=== PATIENT | female | born 1935 | race African-American/Black ===

== ENCOUNTER 2020-05-15 23:02 | Inpatient (IN) | payer OTHER ==
[~2020-05-15] VITALS: Ht 157.5 cm; Wt 40.8 kg
[2020-05-15 23:14] VITALS: BP 153/84
[2020-05-16 00:07] LABS: ABSOLUTE NEUTROPHILS 4.8 thou/uL (1.4-8.2); BASOPHILS 0.6 % (0.0-2.0); HEMATOCRIT 43.2 % (37.0-47.0); HEMOGLOBIN 14.2 gm/dL (12.0-15.0); LYMPHOCYTES 10.4 % (24.0-44.0); MCHC 32.7 g/dL (28.0-37.0); MCV 82.6 fL (80.0-100.0); MONOCYTES 4.1 % (1.0-8.0); PLATELET COUNT 143 thou/uL (150-400); POLYS 84.9 % (36.0-66.0); RBC 5.23 mil/uL (4.20-5.00); RDW 15.4 % (10.5-14.5); WBC 5.6 thou/uL (4.0-11.0)
[2020-05-16 00:21] LABS: ALBUMIN 3.8 g/dL (3.4-5.0); CALCIUM 9.7 mg/dL (8.5-10.1); CREATININE 1.4 mg/dL (0.6-1.0); TOTAL BILIRUBIN 0.6 mg/dL (0.2-1.0); TOTAL PROTEIN 7.5 g/dL (6.4-8.2); TROPONIN-I 0.07 ng/mL (<0.06)
[2020-05-16 00:23] LABS: POTASSIUM 2.9 mmol/L (3.5-5.1)
[2020-05-16 03:11] VITALS: BP 159/92
[2020-05-16 03:37] VITALS: BP 128/86
--- NOTE | 2020-05-16 04:25 | NUR ---
PATIENT IS A NEW ADMISSION TO THE UNIT THIS SHIFT. SHE ARRIVED VIA CART FROM THE ER AND WAS TRANSFERRED TO THE BED BY STAFF WITHOUT INCIDENT. PATIENT IS ALERT, ORIENTED TO SELF AND PLEASANTLY CONFUSED. SHE WILL BE UNABLE TO PROVIDE USEFUL INFORMATION. ATTEMPTS TO CONTACT FAMILY HAVE BEEN UNSUCCESSFUL. BREATHING STABLE ON ROOM AIR EVIDENCED BY ASSESSMENT AND SPOT OXYGENATION CHECK. NURSE TO COMPLETE ADMISSION AND INITIATE PLAN OF CARE.
[2020-05-16 04:42] LABS: CALCIUM 9.5 mg/dL (8.5-10.1); CREATININE 1.2 mg/dL (0.6-1.0); TROPONIN-I 0.09 ng/mL (<0.06)
[2020-05-16 05:09] LABS: POTASSIUM 2.9 mmol/L (3.5-5.1)
[2020-05-16 07:15] VITALS: BP 162/72
--- NOTE | 2020-05-16 10:01 | NUR ---
WOUND/RISK ASSESSMENT; NO WOUND IDENTIFIED TODAY. THE PATIENT IS ALERT X1. THE ALBUMIN IS 3.8. THE NATANAEL SCORE IS 12 TODAY. NO SKIN ISSUES IDENTIFED. RECOMMENDATIONS; 1-LOW AIRLOSS BED PUMP. 2-Q2H TURNS MINIMUM. 3-USE BARRIENR CREAM TO ALL RADHA PROMINENCES; SCAPULA,SACRUM, COCCYX, BUTTOCKS, AND HEELS, 4-OFFLOAD WITH PRAFO BOOTS. RN PRESENT
--- NOTE | 2020-05-16 11:21 | NUR ---
ASSESSMENT: CM REVIEWED CHART AND SPOKE WITH PATIENTS DAUGHTER ANTONIO THAT SHE LIVES WITH WELL HER SON/DPOA JODY THAT LIVES IN [place]. JODY CAN BE REACHED AT HOME PHONE:[phone] OR CELL: [phone]. CM PROVIDED THIS CONTACT INFORMATION TO ATTENDING PER HIS REQUEST. PATIENT LIVES AT HOME IN A TOWNHOUSE WITH DAUGHTER ANTONIO AND HAS BEEN THERE TWO YEARS IN DECEMBER. PRIOR TO THAT PATIENT WAS LIVING IN [place] IN A [facility]. DAUGHTER ANTONIO STATES PATIENT WAS PRIVATELY PAYING AT THE FACILITY AND FUNDS WERE LOW SO SHE THEN DECIDED TO MOVE PATIENT BACK HERE WITH HER IN HER HOME. SHE STATES THAT PATIENT HAS A WALKER FOR AMBULATION BUT DOES NOT ROUTINELY USE IT ALTHOUGH SHE NEEDS IT. PT HAS ABOUT 3 STEPS TO ENTER THE [facility] AND ABOUT 5 STEPS WITH [facility]ANDRAILS TO THE MAIN LIVING AREA. DAUGHTER REPORTS THAT PATIENTS SPEECH IS OFTEN UNINTELLIGIBILE. SHE STATES THAT PATIENT IS CONFUSED AT BASELINE AND NOT THE SAME PERSON SHE USED TO BE. PT HAS A SHOWER CHAIR AND DAUGHTER HAS TO ASSIST WITH ADLS. CM SPOKE WITH SON TO UPDATE HIM ON CARE. PT/OT IS PENDING AND PATIENT WILL LIKELY NEED POST ACUTE CARE. CM DISCUSSED WITH SON AND DAUGHTER AND THEY ARE AGREEABLE. CM EMAILED A LIST TO PATIENTS SON PER HIS REQUEST TO [email or web address] AND HE WILL REVIEW AND DISCUSS WITH SISTER. PT/OT IS PENDING AT THIS TIME. ATTENDING SPOKE WITH DPOA AND PLANS FOR SNF WITH POSSIBLE TRANSITION TO LTC. CM WILL HAVE MED ASSIST SCREEN PATIENT FOR MEDICAID. CM WILL CONTINUE TO FOLLOW TO ASSIST NEEDED.
--- NOTE | 2020-05-16 12:07 | EKG ---
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 : 1935 Requested By: Devon Silverio Order Number: [id number] MD: Brandon Little Measurements Intervals Etters Rate: 66 P: 101 IL: 132 QRS: 19 QRSD: 81 T: -56 QT: 439 QTc: 460 Interpretive Statements Sinus rhythm Probable left atrial enlargement Left ventricular hypertrophy Nonspecific T abnormalities, inferior leads No previous ECG available for comparison Electronically Signed On 05-16-2020 12:07:19 CDT by Brandon Little [email or web address] <ELECTRONICALLY SIGNED> By: Brandon Little MD, [facility] 05/16/20 1207 0004 0004 Brandon Litlte MD, FACC /EPI
[2020-05-16 15:20] VITALS: BP 172/82
[2020-05-16 20:15] VITALS: BP 176/92
[2020-05-17 00:30] VITALS: BP 137/77
[2020-05-17 04:00] VITALS: BP 144/88
[2020-05-17 05:06] LABS: CALCIUM 8.7 mg/dL (8.5-10.1); CREATININE 0.9 mg/dL (0.6-1.0); MAGNESIUM 1.9 mg/dL (1.8-2.4); TOTAL BILIRUBIN 0.6 mg/dL (0.2-1.0); TOTAL PROTEIN 5.9 g/dL (6.4-8.2); TROPONIN-I 0.07 ng/mL (<0.06)
[2020-05-17 05:26] LABS: POTASSIUM 2.9 mmol/L (3.5-5.1)
[2020-05-17 07:20] VITALS: BP 120/71
[2020-05-17 11:45] VITALS: BP 171/77
--- NOTE | 2020-05-17 15:34 | NUR ---
spoke with son he did not rec emailed skilled list to review. new email [email or web address]
[2020-05-17 16:30] VITALS: BP 141/79
--- NOTE | 2020-05-17 18:37 | NUR ---
ASSUMED CARE OF PT AT SHIFT CHANGE WITH ORIENTEE. ASSESSMENT CHARTED. MEDS GIVEN PER APR. PT ALERT TO SELF, PLEASANTLY CONFUSED. PT NPO D/T BEDSIDE SWALLOW TEST FAILURE. POTASSIUM REPLACED. BP CONTINUES TO BE HIGH, DR NOTIFIED, NO INTERVENTIONS ORDERED. WILL CONTINUE TO MONITOR FOR CHANGES AND FOLLOW POC.
[2020-05-17 20:15] VITALS: BP 145/91
--- NOTE | 2020-05-17 23:35 | NUR ---
UPON INITIAL ASSESSMENT PATIENT IS CONFUSED AND HIGHLY IMPULSIVE. NURSING STAFF UNABLE TO REDIRECT. MEDICATION PROVIDED PER GRANTS ADMINISTRATOR TO CALM PATIENT FOR SAFETY.
[2020-05-18 04:45] VITALS: BP 163/72
[2020-05-18 06:09] LABS: CALCIUM 8.6 mg/dL (8.5-10.1); CREATININE 0.9 mg/dL (0.6-1.0); PHOSPHORUS 2.9 mg/dL (2.5-4.9); POTASSIUM 3.1 mmol/L (3.5-5.1)
[2020-05-18 07:22] VITALS: BP 177/83
--- NOTE | 2020-05-18 09:38 | NUR ---
cm called [facility] [phone]/cell [phone], left message requesting call back, rt needed to know where want referral sent for skilled rehab?
[2020-05-18 10:57] VITALS: BP 154/94
--- NOTE | 2020-05-18 12:55 | NUR ---
FAXED REFERRAL TO [facility] RECEIVED CONFIRMATION AND LEFT MSG WITH BRENT IN ADM THAT PT COULD GO TO [facility] OR [facility].
[2020-05-18 15:27] VITALS: BP 126/66
--- NOTE | 2020-05-18 19:20 | NUR ---
ASSUMED CARE OF PT AT SHIFT CHANGE. ORDERS RECEIVED FOR PUREED DIET; PPN NOT STARTED. TOLERATED LUNCH AND REFUSED DINNER. SLEPT MOST OF THE DAY. A&OX1; PLEASANTLY CONFUSED. REMAINED STABLE. AROUND 1830, PT HAD TWO SMALL VOLUME EMESIS. CHANGE OF SHIFT REPORT GIVEN AT BEDSIDE.
[2020-05-18 20:15] VITALS: BP 143/71
--- NOTE | 2020-05-19 03:58 | NUR ---
SLEPT MOST OF SHIFT. REMAINS ORIENTED TO SELF ONLY AND DROWSY. TURNS SELF IN BED. HAS REMAINED CALM THIS SHIFT. WORKING ON GOALS AND PLAN OF CARE FOR NOC. PROGRESSING TOWARDS DISCHARGE GOALS SLOWLY. TAKES FLUIDS SPARINGLY. CONTINUE TO ASSES CLOSELY. ENCOURAGE FLUIDS. REORIENT NEEDED.
[2020-05-19 04:45] VITALS: BP 134/60
[2020-05-19 05:03] LABS: CALCIUM 8.8 mg/dL (8.5-10.1); CREATININE 0.9 mg/dL (0.6-1.0)
[2020-05-19] MEDS ORDERED: FELODIPINE ER10 MG PO (08:51)
--- NOTE | 2020-05-19 11:18 | NUR ---
discussed during los cont with snf to transfer possible to ltc after skilled rehab. cm spoke with liaison with [facility] they have submitted for auth and just waiting for answer from [facility].
[2020-05-19 12:00] VITALS: BP 123/59
--- NOTE | 2020-05-19 15:26 | NUR ---
FAXED CLINICAL UPDATE TO [facility] SPOKE WITH BRENT IN ADM SHE RECEIVE UPDATE.
[2020-05-19 20:44] VITALS: BP 135/81
--- NOTE | 2020-05-20 03:38 | NUR ---
PT IS ALERT TO SELF WAS UP TO THE CHAIR THIS EVENING AND THEN PLACE BACK TO BED X2 ASSIST PER NURSING. LUNGS ARE CLEAR. APPEARS MALNURISHED IN APPERAANCE. ABDOMEN IS FLAT. BOWEL SOUNDS ACTIVE. SMALL BM NOTED DARK AND CLEANED UP BEFORE PLACED BACK IN BED. NO PAIN NOTED . USES A WALKER. CALL LIGHT WITHIN REACH IF NEEDS ASSISTANCE
[2020-05-20 04:19] VITALS: BP 129/76
[2020-05-20 07:58] VITALS: BP 122/62
[2020-05-20 08:15] VITALS: BP 122/62
[2020-05-20 12:15] VITALS: BP 122/62
[2020-05-20 15:19] VITALS: BP 125/72
--- NOTE | 2020-05-20 17:33 | NUR ---
PT CARE ASSUMED AT 0700. ASSESSMENTS CHARTED. MEDICATIONS CHARTED. LFA IV. POOR INTAKE. PT TO BE DISCHARGED TO [facility]. TRANSPORT VIA CART AT 1900. DISCHARGE [place] READY. CHART COPY READY. IV D/C'D.
== END 2020-05-20 19:15 | DRG 682 ==
LOC: ER 23:02 → 2N 05-16 02:03 → EROBS 05-16 02:03 → 2N 05-16 03:22
PROVIDERS: Emergency Medicine; Nurse Practitioner; ADMIT Hospitalist; ATTEND Hospitalist
DX: N17.0 Acute kidney failure with tubular necrosis (principal); G93.41 Metabolic encephalopathy; M62.82 Rhabdomyolysis; E87.0 Hyperosmolality and hypernatremia; E46 Unspecified protein-calorie malnutrition; Z68.1 Body mass index [BMI] 19.9 or less, adult; R53.81 Other malaise; R77.8 Other specified abnormalities of plasma proteins; R13.10 Dysphagia, unspecified; E86.0 Dehydration; E87.6 Hypokalemia; F03.90 Unspecified dementia, unspecified severity, without behavioral disturbance, psychotic disturbance, mood disturbance, and anxiety; E86.1 Hypovolemia; Z20.822 Contact with and (suspected) exposure to COVID-19; Z23 Encounter for immunization; W18.39XA Other fall on same level, initial encounter; Y93.89 Activity, other specified; Y92.098 Other place in other non-institutional residence as the place of occurrence of the external cause; Y99.8 Other external cause status
CPT/HCPCS: 10081